=== PATIENT | female | born 1975 | race Caucasian/White ===

== ENCOUNTER 2020-03-23 15:46 | Emergency (ER) | payer BC, SELFPAY ==
--- NOTE | ~2020-03-23 | XR_ITS ---
EXAMINATION: XR chest 2V DATE: 03/23/2020 16:37 INDICATION: Congestion. Upper respiratory symptoms. TECHNIQUE: PA and lateral views of the chest were obtained. COMPARISON: None FINDINGS: The lungs are clear with no focal airspace opacities, pulmonary edema, pleural effusion or pneumothor ax. The cardiomediastinal silhouette is normal. Mild thoracic spondylosis. IMPRESSION: 1. No acute cardiopulmonary disease. Reviewed, dictated and finalized at location [facility]
[2020-03-23 16:17] VITALS: PULSE 118; RESP 18; TEMP 36.7; O2SAT 100
[2020-03-23 18:14] LABS: Basophils Absolute Auto 0.1 K/mm3 (0.0-0.1); Basophils Percent Auto 0.9 % (0.2-1.2); Eosinophils Percent Auto 0.2 % (0-4.4); Hematocrit 45.3 % (37.0-47.0); Hemoglobin 15.8 g/dL (12.0-15.0); Immature Granulocyte Absolute 0.18 K/mm3 (0.00-0.031); Immature Granulocyte Percent A 1.7 % (0-0.5); Lymphocytes Absolute Auto 1.82 K/mm3 (0.9-3.2); Lymphocytes Percent Auto 17.4 % (18.3-44.2); Mean Corpuscular HGB Conc 34.9 g/dl (32-36); Mean Corpuscular Hemoglobin 28.6 pg (26-34); Mean Corpuscular Volume 82.1 fl (80-100); Monocytes Absolute Auto 1.4 K/mm3 (0.1-0.6); Neutrophils Percent Auto 66.8 % (45.5-73.1); Platelet Count Result 347 k/mm3 (150-375); Red Blood Count 5.52 M/mm3 (4.2-5.4); White Blood Count 10.5 K/mm3 (4.5-10.0)
--- NOTE | 2020-03-23 18:30 | ED.URI ---
HPI - URI/Sore Throat General Chief Complaint: Upper Respiratory Infection Stated Complaint: nasal congestion, cold symptoms Time Seen by Provider: 03/23/20 17:39 Source: patient Mode of arrival: ambulatory Limitations: no limitations History of Present Illness HPI Narrative: 44-year-old female Complains of several days of mouth pain and a whitish film dysphagia and decreased intake because she is having trouble swallowing anything other than ice cream and reports that she has lost 10 or 12 pounds She does not actually have a fever She had Covid 4 weeks ago MD elicited complaint: sore throat Onset (ago): day(s) Exacerbating factors: swallowing Related Data Allergies Allergy/AdvReac Type Severity Reaction Status Date / Time Sulfa (Sulfonamide Allergy Mild Verified 04/07/10 10:54 Antibiotics) Review of Systems Review of Systems: All systems reviewed & are unremarkable except as noted in HPI and below Constitutional: Constitutional: Reports fatigue and Reports weakness ENT: Reports dysphagia, Reports nasal congestion and Reports sore throat Respiratory: Respiratory: Denies dyspnea and Denies wheezing Gastrointestinal: Gastrointestinal: Denies diarrhea and Denies vomiting Musculoskeletal: Musculoskeletal: Reports myalgias Neurologic: Reports headache(s) and Denies focal weakness Exam Const: General: no acute distress, well developed, alert and awake Nutritional Appearance: well nourished Orientation/consciousness: patient oriented x3 (alert) Limitations: no limitations HENMT: Head: normocephalic and atraumatic Ears: external ears normal General nose exam: No nasal discharge present and no epistaxis Face and sinus: face symmetric Other: Thrush present, mildly erythematous mucous membranes, no tonsillar exudate Eyes: Conjunctivae: conjunctivae normal Sclera: sclerae normal EOM: EOMs intact bilaterally Neck: Neck: normal visual inspection, no lymphadenopathy, supple and no JVD Chest: Chest palpation & inspection: deferred Resp: Effort & Inspection: normal respiratory effort Auscultation: clear to auscultation bilaterally, no rales, no rhonchi, no wheezes and other (BS =) Cardio: Rate: regular rate Rhythm: regular rhythm Heart sounds: no gallops and no murmurs GI: Inspection: normal to inspection : General: Yes no CVA tenderness Back/Spine/Pelvis: Thoracic/Lumbar Spine: thoracic and lumbar spine normal to inspection Skin: General skin exam: normal color and no rashes or lesions noted Rashes: no rashes Neuro: General: patient oriented x3 (alert) and moves all extremities Cranial nerves: Yes facial symmetry Speech: normal speech Extrem: General: normal to inspection, full ROM and no pedal edema Psych: Affect: normal affect Course Vital Signs Vital signs: Vital Signs Temperature 36.7 C 03/23/20 16:17 Pulse Rate 118 H 03/23/20 16:17 Respiratory Rate 18 03/23/20 16:17 Pulse Oximetry 100 03/23/20 16:17 Temperature 36.7 C 03/23/20 16:17 Pulse Rate 118 H 03/23/20 16:17 Respiratory Rate 18 03/23/20 16:17 Pulse Oximetry 100 03/23/20 16:17 MDM - URI/Sore Throat Lab Data Result diagrams: 03/23/20 18:09 Labs: Lab Results 03/23/20 Range/Units 18:09 WBC 10.5 H (4.5-10.0) K/mm3 RBC 5.52 H (4.2-5.4) M/mm3 Hgb 15.8 H (12.0-15.0) g/dL Hct 45.3 (37.0-47.0) % MCV 82.1 (80-100) fl MCH 28.6 (26-34) pg MCHC 34.9 (32-36) g/dl RDW 15.0 H (11.5-14.5) % Plt Count 347 (150-375) k/mm3 MPV 10.0 (7.4-10.4) fl Immature Gran % (Auto) 1.7 H (0-0.5) % Neut % (Auto) 66.8 (45.5-73.1) % Lymph % (Auto) 17.4 L (18.3-44.2) % [place] % (Auto) 13.0 H (2.6-8.5) % Eos % (Auto) 0.2 (0-4.4) % Baso % (Auto) 0.9 (0.2-1.2) % Lymph # (Auto) 1.82 (0.9-3.2) K/mm3 [place] # (Auto) 1.4 H (0.1-0.6) K/mm3 Eos # (Auto) 0.0 (0-0.3) K/mm3 Baso # (Auto) 0.1 (0.0-0.1) K/mm3 Abs Immat Gran (auto) 0.18 H (0.00-0.031) K/m
[2020-03-23 18:47] VITALS: BP 118/75; PULSE 78; RESP 16; O2SAT 100
== END 2020-03-23 18:48 | disposition home or self-care (01) ==
PROVIDERS: Emergency Provider Emergency Medicine; PCP Internal Medicine Endocrinology, Diabetes & Metabolism
DX: B37.0 Candidal stomatitis (principal); Z86.16 Personal history of COVID-19
CPT/HCPCS: 36415; 71046; 85025; 87081; 87880; 99283